=== PATIENT | male | born 1955 | race Caucasian/White ===

== ENCOUNTER 2016-12-08 01:49 | Observation (INO) ==
[2016-12-08] MEDS ORDERED: GLUCAGON SUBQ ONE (02:31)
[2016-12-08] MEDS ORDERED: CARDIZEM IV ONE (02:32)
[2016-12-08] MEDS ORDERED: STERILE WATER INJ. ONE (02:42)
--- NOTE | 2016-12-08 04:56 | PROVIDER DOCUMENTATION ---
This chart was entered by Mariana Do Scribe, acting as scribe for Carlton Del Cid MD. HPI-EENT General - General Chief Complaint: Foreign Body/Throat Stated Complaint: "SOMETHING STUCK IN THROAT Time Seen by Provider: 12/08/16 02:31 Source: patient Allergies/Adverse Reactions: Patient Allergies Allergy/AdvReac Type Severity Reaction Status Date / Time No Known Allergies Allergy Verified 12/08/16 04:01 Home Medications: Home Medication List Medication Instructions Recorded Confirmed Last Taken Type Hydrocodone/Acetaminophen [[place] 1 each PO Q4-6H PRN PRN #20 tablet 09/06/1512/07/16 17:00 Rx 7.5-325 Tablet] - History of Present Illness-EENT General Nature of Presenting Problem: 61 Y/O M presents to ED with EENT. Pt states foreign body stuck in throat since last night after eating steak. Pt states that he has a hx of Parkinson disease and sifuentes's esophagus. Pt states that he dips. EENT Location: reports: throat Quality of Pain: reports: fullness Severity: reports: moderate, severe Onset/Duration: reports: last night Timing: reports: still present Prearrival Treatment: Initiated no prearrival treatment - Throat/Dental Throat/Dental Problem Symptoms: reports: unable to swallow Throat/Dental Problem Context: reports: foreign body Review of Systems - Adult - REVIEW OF SYSTEMS - ADULT Constitutional: denies: chills, fever Eyes: reports: no symptoms reported Ears, Nose, Mouth & Throat: reports: throat swelling. denies: ear discharge, sinus problem, nose pain, mouth/dental pain, mouth swelling Cardiovascular: reports: no symptoms reported Respiratory: reports: no symptoms reported Gastrointestinal: reports: no symptoms reported Genitourinary: reports: no symptoms reported Musculoskeletal: reports: no symptoms reported Integumentary: reports: no symptoms reported Neurological: reports: no symptoms reported Psychiatric: reports: no symptoms reported Endocrine: reports: no symptoms reported Hematologic/Lymphatic: reports: no symptoms reported Allergic/Immunologic: reports: no symptoms reported All Other Systems: Reviewed and Negative Past History - Adult - PAST MEDICAL HISTORY-ADULT Review of Records: reports: Old Records Reviewed, Nursing Assessment Review, Medications Reviewed, Social history reviewed & non-contributory. Major Childhood Illnesses: reports: denies history Cardiovascular: reports: denies history Neurological: reports: Parkinson's - PRIOR SURGERIES/PROCEDURES Surgical/Procedure History: reports: cholecystectomy, orthopedic (extremity) ( total hip replacement,knee and back sx) - IMMUNIZATION STATUS Childhood Immunizations: See Nurse Assessment Flu Vaccine: See Nurse Assessment - SOCIAL HISTORY Smoking: chew Living Situation: family Physical Exam- EENT - Physical Exam EENT General Appearance: alert, no apparent distress Eye Exam: bilateral eye: normal inspection, PERRL, EOMI Ear Exam: bilateral ear: auricle normal, canal normal, TM normal Nasal Exam: normal inspection Throat Exam: other (foreign body) Neck: non-tender, full range of motion Respiratory: lungs clear, normal breath sounds Cardiovascular: normal peripheral pulses, regular rate, rhythm Abdominal Exam: normal bowel sounds, non tender Lymphatic: no adenopathy Back Exam: normal inspection, no CVA tenderness, no vertebral tenderness Extremity: normal range of motion Integumentary: normal color, normal turgor Neurologic: grossly normal Psych/Mental Status: normal mood/affect, normal thought content, normal thought process, oriented x 3 Progress - PLAN OF CARE/RESULTS Progress/Plan/Lab Results: Vital Signs - 8 hr 12/08/16 01:54 Pulse Rate 76 Respiratory Rate 18 Blood Pressure 145/93 O2 Sat by Pulse Oximetry 100 Orders Category Date Time Status NECK AP AND/OR LAT SOFT TISSUE [RAD] Stat Exams 12/08/16 02:07 Taken Diltiazem [Cardizem] Med 12/08/16 02:32 Discontinued 10 mg IV NOW ONE Glucagon Med 12/08/16 02:31 Discontinued 1 mg SUBQ NOW ONE Water, Sterile Inj [Sterile Water Inj] Med 12/08/16 02:42 Discontinued 10 ml .ROUTE .STK-MED ONE - XRAY 1 XRAY Study: other (neck) Impression: Abnormal XRAY Interpretation: foreign body Departure - Departure Date of Disposition Decision: 12/08/16 Time of Disposition Decision: 04:55 DIAGNOSIS: Foreign body of throat, Dysphagia Disposition: ADMITTED INPATIENT 09 Certified Medical Emergency: Emergent Condition: Stable Referrals and Follow-Ups: Ketan Guardado DO [Primary Care Provider] - - Critical Care Note This patient required my direct & personal management of CC.: No Attestation - Physician/ ORTEGA Attestation The physician spent face to face time with patient:: Yes Advanced Practice Provider documentation review:: Supervising physician onsite and consulted in the evaluation and care of this patient. The physician did have a face to face encounter with the patient. This chart was documented by the indicated scribe, (Mariana Do Scribe) and accurately reflects the services I performed and decisions made by me, Carlton Del Cid MD, as attested by the provider's signature.
[2016-12-08 05:29] LABS: MANUAL DIFF NEEDED? NO
[2016-12-08 05:37] LABS: BASO% 0.4 % (0.0-0.8); EOS# 0.16 X1000 (0.0-0.7); EOS% 1.9 % (0.0-10.0); HEMATOCRIT 40.8 % (42.0-52.0); HEMOGLOBIN 13.9 g/dL (14.0-18.0); LYMPH# 1.78 X1000 (1.2-3.4); LYMPH% 21.4 % (20.5-51.1); MCH 31.5 PG (27-31); MCHC 34.1 g/dL (33-37); MCV 92.5 FL (81-99); MONO# 0.53 X1000 (0.11-0.59); MONO% 6.4 % (1.7-9.3); MPV 11.7 FL (7.4-10.4); NEUT% 69.9 % (42.2-75.2); PLT 207 X1000 (130-400); RBC 4.41 XMIL (4.7-6.1)
[2016-12-08 05:47] LABS: ALBUMIN 4.5 g/dL (3.5-5.0); CALCIUM 9.4 mg/dL (8.8-10.2); POTASSIUM 4.3 mmol/L (3.5-5.1); TOTAL BILIRUBIN 0.65 mg/dL (0.20-1.00); TOTAL PROTEIN 7.2 g/dL (6.3-8.3)
[2016-12-08] MEDS ORDERED: NS 1,000 ML IV SCH ×2 (06:49→06:59)
[2016-12-08] MEDS: ZOFRAN IV PRN ×2 (07:20→11:09)
[2016-12-08] MEDS: MORPHINE IV PRN ×2 (07:22→11:11)
--- NOTE | 2016-12-08 07:52 | Diag Imaging Result Doc PS360 ---
NECK AP AND/OR LAT SOFT TISSUE - 12/08/2016 INDICATION: FOREIGN BODY IN THROAT TECHNIQUE: COMPARISON: None FINDINGS: There is a tiny oval hyperdensity measuring about 4 mm projecting at the posterior pharyngeal wall at the level of the hyoid bone. This is nonspecific. Otherwise, no abnormal densities. The airway is patent. IMPRESSION: Tiny oval hyperdensity at the posterior hypopharynx, nonspecific. Electronically signed by Vito Stratton 12/08/2016 7:49 AM
--- NOTE | 2016-12-08 08:19 | HISTORY AND PHYSICAL ---
PRIMARY CARE PROVIDER: Previously Dr. Ketan Guardado, though he is just recently switched to a new nurse practitioner stating that he thinks her last name is Mamta. CHIEF COMPLAINT: Foreign body in throat. HISTORY OF PRESENT ILLNESS: Mr. Guardado is a 61-year-old, male who presented to the ER this morning at approximately 1:49 a.m. He stated that last night at around 6 p.m., that he was eating steak and he swallowed it and felt it become stuck. He states that since this time, he is unable to swallow the piece of food down and is unable to tolerate oral liquids. Everything that he drinks has been coming back up. He denies any shortness of breath at this time or pain related to his foreign body, though he does report some nausea. The only pain that he is having at this time is secondary to some chronic pain that he has in his right knee. The patient states that he does have a history of having trouble with esophageal foreign bodies in the past and has had problems with esophageal strictures in the past. He also has a history of Recinos's esophagus and does undergo EGDs approximately every [address] Alonzo. Upon evaluation in the ER, a soft-tissue neck x-ray did show an esophageal foreign body. The patient did receive medications of glucagon as well as Cardizem in the ER to try to assist with passage of the foreign body, though, these attempts were unsuccessful. At this time, the patient will be admitted for observation and we will consult Dr. Davison with Gastroenterology for assistance with med removing his esophageal foreign body. REVIEW OF SYSTEMS: A 12-point review of systems was conducted with the patient and all were negative except for pertinent positives mentioned above in the HPI. PAST MEDICAL HISTORY: 1. Parkinson's disease. 2. Recinos's esophagus. 3. Previous history of esophageal strictures. 4. Hypertension. 5. BPH. 6. Chronic pain secondary to low back pain and right knee pain. PAST SURGICAL HISTORY: 1. History of previous multiple EGDs secondary to a history of Recinos's esophagus and esophageal strictures. 2. Cholecystectomy. 3. Total right hip replacement. 4. Left knee surgery. 5. Left shoulder surgery. SOCIAL HISTORY: The patient is retired, though reports that for the past 2-3 years he has been on disability. He denies any previous history of tobacco, alcohol or illicit drug use. He currently lives here in [place] with his . ALLERGIES: Patient reports no known allergies. HOME MEDICATIONS: At this time, we are awaiting an official home medication list to be reconciled, though the patient states that he does take Requip, Stalevo, Klonopin, valsartan, Azilect, [place] and meloxicam. DIAGNOSTIC DATA/LABORATORY RESULTS: White blood cell count 8.3, hemoglobin 13.9 , hematocrit 40.8, platelet count is 207,000. Sodium 143, potassium 4.3, chloride 103, bicarbonate 28, BUN 28, creatinine 1.8 with a GFR of 38, glucose 92, calcium 9.4. Liver function tests are within normal limits. X-ray of soft tissue neck shows esophageal foreign body. We are awaiting official radiology over read. PHYSICAL EXAMINATION: VITAL SIGNS: Temperature 97 degrees, heart rate 70, respirations 14, blood pressure 120/70, oxygen saturations 100% on room air. GENERAL: Mr. Guardado is a pleasant 61-year-old, male, who is resting comfortably in the ER stretcher. He was in no acute distress. He was awake, alert, and able to answer all questions appropriately. HEENT: Head is atraumatic, normocephalic. Pupils are equal, round, reactive to light, were 3 mm bilaterally and brisk. Oral mucosa was moist. Oropharynx is clear. NECK: Supple. Trachea midline. CARDIOVASCULAR: Patient has normal S1, S2. No murmurs, gallops, rubs appreciated. PULMONARY: Patient has symmetrical chest expansion bilaterally. Lung sounds are clear to auscultation in bilateral hopson. Patient has no respiratory distress noted upon examination. ABDOMEN: Soft, nontender, nondistended. Bowel sounds are present in all 4 quadrants, and normoactive. EXTREMITIES: No cyanosis, clubbing, or edema noted. Pulse, motor and sensory are intact in all extremities. Pedal pulses are 3+ bilaterally. INTEGUMENTARY: The patient's skin is pink, warm, dry, and intact. No lesions or sores noted. NEUROLOGICAL: Patient is alert and oriented x4. Cranial nerves 2-12 are grossly intact. ASSESSMENT AND PLAN: 1. Esophageal foreign body. At this time, we have placed the patient NPO. We have also placed a consult with Dr. Davison with Gastroenterology and will await their evaluation and further recommendations for management. We will provide the patient with Zofran for nausea. We will also do some IV fluids for hydration. We will also implement aspiration precautions as well, and we will continue to follow. 2. Hypertension. At this time, the patient's blood pressure is within normal limits. We will continue to monitor this. We are awaiting his medication list to be reconciled. 3. Parkinson's disease. We are aware. 4. Acute kidney injury. At this time, we are uncertain if this is of new onset. We do not have any recent laboratory results for the patient since 2006. He denies any nausea, vomiting, though has not been able to hold down any liquids since approximately 6 p.m. last night. We will provide the patient with IV hydration normal saline at 100 mL/h and we will continue to follow. 5. Chronic pain. We will provide the patient with morphine p.r.n. as needed. The patient will be placed on the medical floor with telemetry. He will have vital signs q.6 hours. Deep vein thrombosis prophylaxis will be provided with sequential compression devices. Further orders and recommendations pending hospital course, diagnostic studies, and physician evaluation. Dictated by ELIAS Manriquez for Teja Rao MD cc: Teja Rao MD MTDD
--- NOTE | 2016-12-08 10:46 | Diag Imaging Result Doc PS360 ---
EXAM: CT THORAX/ABD/PELVIS W/O CONT INDICATION: Abdominal Pain TECHNIQUE: Dose reduction protocol was used. COMPARISON: CT abdomen and pelvis dated 12/09/2011. No prior CT chest is available for comparison. FINDINGS: CHEST: There is subsegmental atelectasis at the lower lung zones bilaterally, mainly at the lower lobes. There are no pleural fluid collections and no pneumothorax. In the upper to mid esophagus, there is radiopaque debris in the lumen. This may represent foodstuffs. However, it is difficult to completely exclude an esophageal mass with no IV contrast. The heart is enlarged. There is trace pericardial fluid. There is no evidence of significant mediastinal or hilar lymphadenopathy. There are degenerative changes involving the thoracic spine. ABDOMEN/PELVIS: There are multiple cyst density hepatic lesions. This is seen on the previous study as well. However, they are more numerous and many are larger than the previous study in 2012. There has been a prior cholecystectomy. The spleen, adrenal glands, and pancreas are grossly unremarkable. There are multiple low to intermediate density cysts involving both kidneys, mainly on the left. They are approximately stable as compared to the previous study in 2011. The largest is on the left measuring up to 8.2 cm. There are several nonobstructing intrarenal stones bilaterally. There are no ureteral stones and there is no hydronephrosis. The urinary bladder is partially distended and is unremarkable, otherwise. The appendix appears normal. The GI tract is grossly unremarkable. There are degenerative changes involving the lumbar spine. There has been a prior right hip arthroplasty. IMPRESSION: 1.Radiopaque debris in the lumen of the esophagus as described. This may represent foodstuffs. However, a mass cannot completely be excluded with unenhanced CT. 2.Cardiomegaly. 3.Nonobstructive nephrolithiasis. 4.Other incidental/nonacute findings detailed above but no evidence of acute pathology involving the abdomen or pelvis. Electronically signed by Mauricio Lazaro 12/08/2016 10:44 AM
[2016-12-08] MEDS ORDERED: DIPRIVAN 1% ONE (15:34)
[2016-12-08] MEDS ORDERED: XYLOCAINE-MPF 2% ONE (15:36)
[2016-12-08] MEDS ORDERED: QUELICIN (DOSE) ONE (15:36)
[2016-12-08] MEDS ORDERED: EPHEDRINE ONE (15:51)
[2016-12-08] MEDS ORDERED: 1/2 NS 1,000 ML IV SCH (16:26)
--- NOTE | 2016-12-08 16:29 | CONSULTATION ---
DATE OF CONSULTATION: 12/08/2016 HISTORY AND REASON FOR CONSULTATION: Evaluation of this patient with acute dysphagia. HISTORY OF PRESENT ILLNESS: This is a 61-year-old gentleman, known to me from previous office visits. His last visit was on 03/18/2015. He had a history of difficulty in swallowing. He had undergone an esophagogastroduodenoscopy and colonoscopy on 07/26/2013, which revealed that he had no significant problem in the esophagus; however, I dilated the esophagus to 51- Swedish Luis dilator. The patient had gastritis and duodenitis. He also had a small quantity of bile in the stomach. He was given Protonix after the procedure, and he did fine for some time. His colon was normal. The patient saw me again in late-2014. At that time, he was complaining of difficulty in swallowing. An esophagogastroduodenoscopy was done. Again, dilation was done. He had moderately- severe gastritis. Biopsy of the stomach was negative for any Helicobacter pylori infection. The patient was maintained on Protonix. He did not come for followup appointment since then. The patient saw a physician in [place], Dr. Alonzo who did the EGD for him about 6 months ago, and he was told that he had Recinos's esophagus. The patient has a known case of Parkinson's disease. It is not unusual for such patients to have difficulty in swallowing. The patient was eating his intermediate dinner at [facility] last night and he ate steak, and after eating steak he thought it got stuck in the lower esophagus. He tried to get it out by trying to regurgitate, but it did not work, so finally he came in curtain stitcher to the emergency room. ER evaluated him and gave him some morphine, and he relaxed some; however, nothing moved down. He was vomiting until morphine was given. Currently, he does not have any symptoms. Still, he is spitting up saliva. The patient had a CT scan of the abdomen and pelvis done, and also a chest done, which showed a filling defect in the esophagus. Otherwise, it was remarkable for multiple small cysts in the liver and spleen, which were present before. Some of them were bigger. The patient had been having persistent abdominal pain in the epigastric area since he started vomiting. I believe that this could be secondary to muscle spasm. The patient had some cardiomegaly and nonobstructive nephrolithiasis. He also had minor atelectasis. His blood work was okay. The patient was admitted for further evaluation and manage. PAST MEDICAL HISTORY: 1. Parkinson disease. 2. History of Recinos's esophagus. 3. History of previous esophageal stricture, questionable. 4. Hypertension. 5. Benign prostatic hypertrophy. 6. Chronic pain, secondary to back pain. PAST SURGICAL HISTORY: 1. Several EGDs before colonoscopy in 2013, which was negative. 2. Cholecystectomy. 3. Total right hip replacement. 4. Left knee surgery. 5. Left shoulder surgery. SOCIAL HISTORY: The patient is retired. He denies any alcohol or tobacco use. He has a and 3 daughters. ALLERGIES: No known drug allergies. REVIEW OF SYSTEMS: Normally, the appetite is good. There is no nausea or vomiting in the past. He has persistent heartburn. He has occasional difficulty in swallowing, especially if he eats steak. I have requested him not to eat any steak in the past. At present, there is epigastric pain and some generalized abdominal pain. No constipation, diarrhea , blood in stool, or black stool. PHYSICAL EXAMINATION: general: The patient is alert, oriented x3. He does not seem to be any acute distress. Vital Signs: The temperature is 97.7 degrees, the pulse is 71 per minute, respiratory rate is 98, blood pressure is 135/91. Skin: Warm and dry. HEENT : Mucous membranes are moist. Neck: Supple. There is no thyromegaly. Cardiac: Both heart sounds are heard. Rhythm is regular. I could not hear any murmur. Lungs: Clear to percussion and to auscultation. Abdomen: Soft, nontender. No masses felt. Bowel sounds are heard. Extremities: Free of any edema. Peripheral pulsations equal to the right radial pulse. LABORATORY DATA: All normal, as described above. IMPRESSION: Foreign body in the esophagus. RECOMMENDATION: Esophagogastroduodenoscopy. I have explained the procedure of esophagogastroduodenoscopy with benefit and risks, in particular, risk of perforation, hemorrhage, and infection. The patient agreed for it. We will proceed with it. I also explained to the patient about monitored anesthesia care. He agreed for it. cc: DO RENÉE Bobo
[2016-12-08 17:31] VITALS: BP 149/97
--- NOTE | 2016-12-08 18:28 | OPERATIVE NOTE ---
PROCEDURE DATE: 12/08/2016 HISTORY AND REASON FOR THE PROCEDURES: The patient had eaten a steak last night and it got stuck in his esophagus. Medications were all given by Anesthesiologist. Patient was monitored before, during, and after the procedure by them and his condition remained stable. As a matter of fact, because of the risk of aspiration, he was intubated to protect his airway by Dr. Menjivar just before the procedure. PROCEDURE: The patient was kept in the left lateral decubitus position. A bite block applied. The Olympus videoscope was introduced under direct vision of the throat and advanced to the esophagus. On reaching the mid esophagus, I saw a large piece of steak present. I tried to remove it with it Hill Net, but it was not possible to manipulate the large piece of steak into the net. Therefore, that was removed. Then I tried to remove it by the 3 prong forceps. I broke off pieces of it and was able to get only small pieces. Then eventually I used the snare. Part of it was broke off with the snare and removed and then at the end I was able to catch the whole piece with the snare and remove it. After removal of the foreign body, I advanced the scope into the rest of the upper GI tract. There was mild irritation at the area where the steak was stuck. There was no evidence of any stricture; however, there was a small hiatus hernia. I advanced the scope into the stomach without any difficulty. There was a small amount of debris, which was aspirated and removed. There was mild gastritis present in the antral area. No ulcers were present. The scope was advanced all the way into the second part of duodenum. Duodenum appeared normal. The scope was withdrawn and retroflexed. The angularis, lesser curvature, and greater curvature were all examined carefully. The fundus appeared normal. Air was taken out of the patient's stomach and scope was removed from the patient. IMPRESSION: 1. Large foreign body in the esophagus removed. 2. Hiatus hernia. 3. Mild gastritis. RECOMMENDATION: The patient should be given a GI soft diet and could be discharged home. He will see me back in the office in 2 weeks. I will recommend him not to eat any steak. He should chew his food thoroughly and eat slowly. After 2 weeks when I see him in the office, I will set him up for another endoscopy for further evaluation and possible dilatation. cc: MD Ketan Akbar, DO
[2016-12-09] MEDS ORDERED: PROTONIX PO SCH (07:00)
--- NOTE | 2016-12-09 08:42 | DISCHARGE SUMMARY ---
ADMISSION DATE: 12/08/2016 DISCHARGE DATE: 12/08/2016 FINAL DISCHARGE DIAGNOSES: 1. Foreign body in the esophagus status post EGD. 2. Parkinson's disease. 3. Hypertension. 4. Benign prostatic hypertrophy. 5. Chronic back pain. 6. History of esophageal stricture. PROCEDURES: Performed during this hospital stay: EGD with removal of foreign body. HOSPITAL COURSE: Mr. Guardado is a 61-year-old male with a history of multiple medical problems, including Parkinson's who presented to the ER after getting some steak stuck in his esophagus while eating. The patient was admitted to the Hospitalist Service and GI was consulted. The patient was taken for an EGD today, at which time the foreign body was removed. The patient was able to tolerate a regular diet following the procedure and was ultimately cleared for discharge home. DISCHARGE MEDICATIONS: The patient has been advised to continue on the medications that he came into the hospital on. DISCHARGE DIET: Heart healthy diet. FOLLOWUP INSTRUCTIONS: The patient has been advised to follow up with Dr. Guardado in 2 weeks. cc: MD Ketan Akbar DO
== END 2016-12-08 18:15 | disposition home or self-care (01) ==
LOC: EDIPHOLD 01:49 → ED 01:49 → SUATTDRO 05:45 → 3N 11:31
PROVIDERS: ATTEND Internal Medicine